=== PATIENT | female | born 1995 | race Caucasian/White ===

== ENCOUNTER 2019-06-29 11:00 | Outpatient (CLI) | payer MEDICAID, SELFPAY ==
[2019-06-29 11:09] VITALS: TEMP 36.9
[2019-06-29 11:15] VITALS: BP 125/83; PULSE 100
[2019-06-29 11:20] VITALS: BMI 36.6
[2019-06-29 11:31] VITALS: BP 131/90; PULSE 94
[2019-06-29 11:46] VITALS: BP 127/77; PULSE 98
[2019-06-29 11:49] LABS: Basophils % 0.4 %; Eosinophils # 0.3 10^3/uL (0.0-0.8); Eosinophils % 2.7 %; Hematocrit 35.8 % (37.0-47.0); Hemoglobin 11.7 g/dL (11.5-15.3); Lymphocytes # 1.7 10^3/uL (0.8-4.8); Mean Corpuscular HGB Conc 32.7 g/dL (30.0-36.0); Mean Corpuscular Hemoglobin 28.9 pg (28.0-34.0); Mean Corpuscular Volume 88.4 fL (81-99); Mean Platelet Volume 10.1 fL (7.4-10.4); Monocytes % 9.9 %; Neutrophils # 6.8 10^3/uL (1.8-7.7); Neutrophils % 69.3 %; Nucleated Red Blood Cells % 0 %; Platelet Count 220 10^3/cmm (130-400); Red Blood Count 4.05 10^6/uL (4.1-5.3); Red Cell Distribution Width 13.2 % (12.1-15.1); White Blood Count 9.9 10^3/uL (4.0-10.0)
[2019-06-29 12:01] VITALS: BP 120/66; PULSE 88
[2019-06-29 12:16] VITALS: BP 115/74; PULSE 100
== END 2019-06-29 12:30 | disposition home or self-care (01) ==
LOC: OPOB 11:06 → OBGYN 12:24 → OPOB 06-30 08:34
PROVIDERS: Family Provider Family Medicine; PCP Family Medicine; Visit Provider Family Medicine
DX: O99.419 Diseases of the circulatory system complicating pregnancy, unspecified trimester (principal); Z3A.00 Weeks of gestation of pregnancy not specified
CPT/HCPCS: 85025

== ENCOUNTER 2019-07-07 20:55 | Outpatient (CLI) | payer MEDICAID, SELFPAY ==
[2019-07-07] VITALS (7 sets, daily range): BP systolic 0–156; BP diastolic 0–81; PULSE 96–120; RESP 18; TEMP 36.7–36.9; BMI 36.6
== END 2019-07-07 22:27 | disposition home or self-care (01) ==
LOC: OPOB 20:57 → OBGYN 22:17 → OPOB 07-08 08:34
PROVIDERS: Family Provider Family Medicine; PCP Family Medicine; Visit Provider Family Medicine
DX: O26.899 Other specified pregnancy related conditions, unspecified trimester (principal); Z3A.00 Weeks of gestation of pregnancy not specified; R10.9 Unspecified abdominal pain
CPT/HCPCS: 99211

== ENCOUNTER 2019-07-16 02:20 | Outpatient (CLI) | payer MEDICAID, SELFPAY ==
[2019-07-16] VITALS (7 sets, daily range): BP systolic 0–149; BP diastolic 0–80; PULSE 75–94; RESP 18; TEMP 36.9; BMI 36.9
== END 2019-07-16 04:50 | disposition home or self-care (01) ==
LOC: OPOB 02:26 → OBGYN 04:46 → OPOB 08:17
PROVIDERS: Family Provider Family Medicine; PCP Family Medicine; Visit Provider Family Medicine
DX: O26.899 Other specified pregnancy related conditions, unspecified trimester (principal); Z3A.00 Weeks of gestation of pregnancy not specified; R10.9 Unspecified abdominal pain
CPT/HCPCS: 99211

== ENCOUNTER 2019-07-16 17:35 | Outpatient (CLI) | payer MEDICAID, SELFPAY ==
[2019-07-16 17:51] VITALS: BP 144/75; PULSE 88
[2019-07-16 18:07] VITALS: BP 0/0
[2019-07-16 18:08] VITALS: BP 120/73; PULSE 112
[2019-07-16 18:12] VITALS: TEMP 36.7
[2019-07-16 18:16] VITALS: BMI 36.9
[2019-07-16 18:19] LABS: Nitrazine Paper, PH Negative
[2019-07-16 18:22] VITALS: BP 0/0
[2019-07-16 18:39] VITALS: BP 120/73; PULSE 91; RESP 17; TEMP 36.7
== END 2019-07-16 18:25 | disposition home or self-care (01) ==
LOC: OPOB 17:45 → OBGYN 18:17 → OPOB 07-19 14:20
PROVIDERS: Family Provider Family Medicine; PCP Family Medicine; Visit Provider Family Medicine
DX: O26.899 Other specified pregnancy related conditions, unspecified trimester (principal); Z3A.00 Weeks of gestation of pregnancy not specified; R10.9 Unspecified abdominal pain; N89.8 Other specified noninflammatory disorders of vagina
CPT/HCPCS: 59025; 83986; 99211

== ENCOUNTER 2019-07-20 12:05 | Inpatient (IN) | payer MEDICAID, SELFPAY ==
[2019-07-20] VITALS (24 sets, daily range): BP systolic 0–141; BP diastolic 0–78; PULSE 56–105; RESP 16–18; TEMP 36.2–36.8; O2SAT 97–100; BMI 36.9
--- NOTE | 2019-07-20 12:14 | US_ITS ---
WS: [id number] US OB BPP wo NST [id number] REASON FOR EXAM: non-reassuring FHTs FINDINGS: Cervix measured 4.66 cm and is closed. Is cephalic presentation of the fetus. heart rate 147 beats for minute line limited respiration is interpreted no evidence of movement . The biophysical profile is 2/8. Posterior placenta with normal amounts of amniotic fluid seen. IMPR ESSION: Physical profile 2/8 line there is limited breathing identified.
[2019-07-20] MEDS: lactated ringers 1,000 ML 999 ML IV (12:28)
[2019-07-20 12:35] LABS: Basophils # 0.1 10^3/uL (0.0-0.1); Basophils % 0.3 %; Eosinophils # 0.3 10^3/uL (0.0-0.8); Eosinophils % 1.7 %; Hematocrit 38.2 % (37.0-47.0); Hemoglobin 12.5 g/dL (11.5-15.3); Lymphocytes # 1.4 10^3/uL (0.8-4.8); Lymphocytes % 8.4 %; Mean Corpuscular HGB Conc 32.7 g/dL (30.0-36.0); Mean Corpuscular Hemoglobin 29.5 pg (28.0-34.0); Mean Corpuscular Volume 90.1 fL (81-99); Mean Platelet Volume 10.7 fL (7.4-10.4); Monocytes # 1.1 10^3/uL (0.2-0.9); Monocytes % 6.2 %; Neutrophils # 14.2 10^3/uL (1.8-7.7); Neutrophils % 82.8 %; Nucleated Red Blood Cells % 0 %; Platelet Count 226 10^3/cmm (130-400); Red Blood Count 4.24 10^6/uL (4.1-5.3); Red Cell Distribution Width 13.5 % (12.1-15.1); White Blood Count 17.2 10^3/uL (4.0-10.0)
--- NOTE | 2019-07-20 13:54 | XR_ITS ---
WS: [id number] XR abdomen 1V* [id number] REASON FOR EXAM: stat section no count FINDINGS: KUB shows nonspecific findings. A density is seen overlapping the right upper abdomen weren 't sure the significance of this finding most likely extrinsic to the abdomen. The clinical correlati on recommended. XR/XR abdomen 1V* [id number] IMPRESSION: A density is noted in the right upper abdomen weren't sure if this is intrinsic or extrinsic.
--- NOTE | 2019-07-20 14:28 | PC.NURSE ---
placed after section due to stat section. dr lara aware.
--- NOTE | 2019-07-20 14:30 | PC.NURSE ---
in or still
--- NOTE | 2019-07-20 14:43 | PM.OBGYHP ---
Providers/Chief Complaint Admitting Physician: Mary Sam MD Primary Care Provider: Mary Sam MD Chief Complaint: Abdominal pain HPI SENIOR TECHNICAL EDITOR History of Present Illness Keisha Martins is a 24 year old female G1, P0 at 39 weeks 1 day gestation who presented to labor and delivery complaining of contractions. She states they have been consistent for the past hour and were becoming more painful they were occurring approximately every 5 minutes. Present Details : 1 Review of Systems Const: Denies: fever, chills or body aches Eyes: Denies: change in vision ENMT: Denies: throat pain Card: Denies: chest pain or palpitations Resp: Denies: shortness of breath or productive cough GI: Reports: abdominal pain (With contractions) : Denies: flank pain or vaginal bleeding Skin/Breast: Denies: rash Neuro: Denies: numbness in extremities or weakness in extremities Medications/Allergies Allergies Allergy/AdvReac Type Severity Reaction Status Date / Time No Known Allergies Allergy Verified 07/16/19 02:39 Vitals/I&O/Wt Last Vital Signs Temp 97.2 F L 07/20/19 14:20 Pulse 93 07/20/19 13:06 BP 139/66 07/20/19 13:06 Weight last 48 hrs Weight 229 lb Physical Exam HENMT: COMMON NORMALS: normocephalic and moist oral mucous membranes HEAD & SCALP: normocephalic Eye: COMMON NORMALS: PERRL and EOMs intact bilaterally PUPIL: Yes PERRL Chest: COMMONS NORMALS: inspection of chest normal Resp: COMMON NORMALS: normal respiratory effort; negative for no use of accessory muscles Cardio: COMMON NORMALS: regular rate and regular rhythm RATE: regular rate RHYTHM: regular rhythm GI: INSPECTION: Yes other (Gravid, nontender) Extremity: NARRATIVE EXTREMITY EXAM: 1+ edema Urinary Catheter Management^: Turk Latex: Cath Placed During This Visit: yes Urinary Catheter Date of Insertion: 07/20/19 Urinary Catheter Time of Insertion: 12:20 Data : 07/20/19 12:15 A&P Assessment and plan (1) Non-reassuring electronic monitoring tracing: The patient showed up having regular contractions and was found to have a nonreactive NST despite IV fluids and orange juice. A biophysical profile was obtained and was found to be 2 out of 8 for fluid only. An emergent stat section was called. Status: Acute Code(s): O36.8390 - Maternal care for abnormalities of the heart rate or rhythm, unspecified trimester, not applicable or unspecified (2) Uterine contractions during : Status: Acute Code(s): O62.2 - Other uterine inertia Attestations Medical Necessity Statement*: Surgery routine and postoperative care Coding Level of Care Code Acute Material Carrier for Chg Fwd Diagnoses Non-reassuring electronic monitoring tracing O36.8390 Uterine contractions during O62.2
--- NOTE | 2019-07-20 14:56 | PM.OP ---
Operative Report Date of procedure: July 20, 2019 Pre-op Diagnosis: Nonreassuring heart tones Post-op diagnosis: same Procedure Done: Primary low transverse section via Pfannenstiel skin incision Specimens removed/disposition: Vertex female infant weight 8 pounds 3 ounces Apgars 2 and 9 Pathology: none sent Anesthesia: Other (Spinal) Estimated blood loss (mL): 400 IV fluids (mL): 800 Urine output (mL): 50 Condition: stable Disposition: floor Brief History: This is a 24-year-old G1, P0 at 39 weeks 1 day gestation who presented to labor and delivery complaining of contractions. She had a nonreactive NST so biophysical profile was obtained and was found to be 2 out of 8 for fluid only. Emergent section was called at that time. Procedure: After informed consent patient was taken to the OR where spinal anesthesia was administered. She was prepped and draped in normal sterile fashion in dorsal supine position with a left lateral tilt. A Pfannenstiel skin incision was made and carried through to the underlying layer of fascia sharply. The fascial incision was extended laterally using the Mayos. The fascia was then grasped with Cesar clamps. The underlying rectus muscles were dissected off taking care to avoid injury to the underlying tissue. The peritoneum was then entered bluntly using a hemostat. The bladder blade was inserted and the vesicouterine peritoneum was identified and entered sharply using the Metzenbaums. The bladder flap was created digitally and then the bladder blade was reinserted. Uterine incision was made in a transverse fashion in the lower uterine segment. Thick meconium was noted. The infant's head was delivered atraumatically with bulb suction of the mouth and nares upon delivery. There was thick thick green mucoid material coming from both nares. The cord was clamped and cut. The did have good flexed tone when she was handed to the waiting pediatric team. The placenta was then delivered using fundal pressure. The uterus was then exteriorized from the abdomen and a dry sponge was used to clear the uterus of clots and debris. Uterine incision was repaired using 0 chromic in a running locked fashion. A second layer of the same suture was used in an imbricating manner. A foykar-ui-zucft suture was used in the left lateral aspect to obtain hemostasis. After hemostasis was ensured the bladder flap was then reapproximated using 0 Vicryl in a running fashion. The uterus was then returned to the abdomen and irrigation was used to clear the uterus of clots and debris. The uterine incision was reinspected for hemostasis. The peritoneum was then reapproximated using 4-0 Vicryl in a running fashion. The rectus muscles were gently reapproximated using one interrupted suture of 4-0 Vicryl. The subfascial tissue was then inspected for any small bleeders and these were coagulated using the Bovie. The fascia was then reapproximated using 0 Vicryl in a running fashion. The subcutaneous tissue was then irrigated and reinspected for hemostasis. The subcutaneous tissue was then reapproximated using 4-0 Vicryl in a running fashion. At this point abdominal x-ray was obtained since we did not have time to do instrument counts prior to initiation of the procedure. Abdominal x-ray appeared within normal limits, with no visible foreign bodies. The skin was then reapproximated using 4-0 Vicryl in a running fashion on a Fransisco needle. Steri-Strips and a pressure bandage were applied and patient went to recovery in stable condition Sponge instrument and needle counts were correct. Mother and infant were doing well after delivery
--- NOTE | 2019-07-20 20:19 | PC.NURSE ---
DR. CLAROS HERE AND TALKING WITH PT. PT AND SPOUSE AWARE THAT IS GOING TO HAPPEN PRIOR TO DR. CLAROS'S ARRIVAL. SECTION CALLED AND ANESTHESIA WAS NOTIFIED AND TOLD THAT IT WAS STAT FOR NON REASSURING FHT'S 1310 PT AMBULATED TO OR.
--- NOTE | 2019-07-20 20:20 | PC.NURSE ---
1226 PT OFF MONITORS FOR BIOPHYSICAL PROFILE. BACK ON AT 1252.
[2019-07-20] MEDS: miSOPROStol 200 mcg Tablet 800 MCG PR (20:39)
[2019-07-20] MEDS: HYDROcodone-acetaminophen 5-325 mg Tablet PO (22:41)
[2019-07-21 01:00] VITALS: BP 108/66; PULSE 79; RESP 16
[2019-07-21 03:44] LABS: Hematocrit 33.9 % (37.0-47.0); Hemoglobin 11.2 g/dL (11.5-15.3); Mean Corpuscular Hemoglobin 29.9 pg (28.0-34.0); Mean Corpuscular Volume 90.6 fL (81-99); Mean Platelet Volume 10.7 fL (7.4-10.4); Platelet Count 197 10^3/cmm (130-400); Red Blood Count 3.74 10^6/uL (4.1-5.3); Red Cell Distribution Width 13.5 % (12.1-15.1); White Blood Count 18.6 10^3/uL (4.0-10.0)
[2019-07-21 04:30] VITALS: BP 103/64; PULSE 97; RESP 16
[2019-07-21] MEDS: HYDROcodone-acetaminophen 5-325 mg Tablet PO (06:02)
[2019-07-21] MEDS: prenatal vitamin Capsule 1 CAP PO (09:06)
[2019-07-21] MEDS: docusate sodium 100 mg Capsule PO ×2 (09:06→21:18)
[2019-07-21 09:15] VITALS: BP 96/63; PULSE 99; RESP 18; TEMP 36.8
--- NOTE | 2019-07-21 09:31 | PC.NURSE ---
Patient ambulated 1 time up and down hallway. Patient reported she had not previously ambulated since her surgery yesterday. Patient tolerated ambulation well, denying dizziness weakness or being lightheaded. Patient instructed she is fine to get up and shower as well as continue ambulation unassisted.
[2019-07-21 10:56] VITALS: BP 107/71; PULSE 114; RESP 18; TEMP 37.1
[2019-07-21 16:48] VITALS: BP 105/66; PULSE 87; RESP 18
--- NOTE | 2019-07-21 19:30 | PM.PN ---
Subjective Subjective: Interval history: Has not passed flatus yet but is tolerating full liquid diet. Ambulating,. Has some significant itching but this was present prior to hospitalization Vitals/I&O/Wt Last Vital Signs Temp 98.7 F 07/21/19 10:56 Pulse 87 07/21/19 16:48 Resp 18 07/21/19 16:48 BP 105/66 07/21/19 16:48 Pulse Ox 97 07/20/19 16:57 07/21/19 07/21/19 07/21/19 06:59 14:59 22:59 Intake Total 150 / 150 Output Total 600 / 600 Balance -450 / -450 Weight last 48 hrs Weight 229 lb Physical Exam Const: COMMON NORMALS: no apparent distress HENMT: COMMON NORMALS: normocephalic HEAD & SCALP: normocephalic Eye: COMMON NORMALS: PERRL and EOMs intact bilaterally PUPIL: Yes PERRL Resp: COMMON NORMALS: normal respiratory effort Cardio: COMMON NORMALS: regular rate and regular rhythm RATE: regular rate RHYTHM: regular rhythm GI: COMMON NORMALS: soft to palpation AUSCULTATION: Yes hypoactive bowel sounds PALPATION: Yes soft, No tender and Yes other (Incision clean dry and intact) Extremity: GENERAL: No calf tenderness and Yes edema Urinary Catheter Management^: Turk Latex: Cath Placed During This Visit: yes, but has since been removed by the nurse Reason for Continuing Indwelling Catheter: Perioperative Use in Selected Surgeries Urinary Catheter Date of Insertion: 07/20/19 Urinary Catheter Time of Insertion: 12:20 Date Urinary Catheter Removed: 07/21/19 Time Urinary Catheter Discontinued: 05:00 Data : 07/21/19 03:00 A&P Assessment and plan (1) Delivery by section using transverse incision of lower segment of uterus: Postop day 1. Doing well . patient is feeling very hungry so I am going to go ahead and let her eat with strong cautions to stop if she feels any nausea. Continue routine postoperative care Status: Acute Code(s): O82 - Encounter for delivery without indication Attestations Medical Necessity Statement*: Routine and postoperative care Coding Level of Care Code Acute Family Preservation Caseworker for Chg Fwd Diagnoses Delivery by section using transverse incision of lower segment of uterus O82
[2019-07-21 22:00] VITALS: BP 104/68; PULSE 92; RESP 18
[2019-07-22] MEDS: HYDROcodone-acetaminophen 5-325 mg Tablet PO ×2 (06:21→18:53)
[2019-07-22 07:33] VITALS: BP 113/70; PULSE 69; RESP 16; TEMP 36.6
[2019-07-22] MEDS: prenatal vitamin Capsule 1 CAP PO (09:55)
[2019-07-22] MEDS: docusate sodium 100 mg Capsule PO ×2 (09:55→18:54)
[2019-07-22] MEDS: lanolin oint 7 gm 1 APPLIC TOPICAL (09:56)
[2019-07-22 11:45] VITALS: BP 113/60; PULSE 91; RESP 18; TEMP 36.8; O2SAT 96
[2019-07-22] MEDS: cetirizine 10 mg Tablet PO (12:43)
[2019-07-22 17:15] VITALS: BP 106/66; PULSE 91; RESP 18; TEMP 36.6
[2019-07-22 22:00] VITALS: BP 114/69; PULSE 105; RESP 18; TEMP 36.6
[2019-07-23] MEDS: HYDROcodone-acetaminophen 5-325 mg Tablet PO ×2 (00:15→04:56)
[2019-07-23 04:50] VITALS: BP 108/64; PULSE 89; RESP 18
[2019-07-23 09:52] VITALS: BP 109/68; PULSE 105; RESP 16; TEMP 36.6
[2019-07-23] MEDS: ferrous sulfate EC 325 mg Tablet PO (09:53)
[2019-07-23] MEDS: docusate sodium 100 mg Capsule PO (09:53)
[2019-07-23] MEDS: prenatal vitamin Capsule 1 CAP PO (09:54)
--- NOTE | 2019-07-23 13:45 | PM.OBGYDC ---
Discharge Providers SENIOR MICROSOFT CONSULTANT Date of Admission: 07/20/19 12:05 Date of Discharge: 07/23/19 Attending Provider at Admission: Mary Sam MD Attending Provider at Discharge: Mary Sam MD Primary Care Provider: Mary Sam MD Diagnoses at Discharge Discharge Diagnosis (1) Delivery by section using transverse incision of lower segment of uterus: Status: Acute Reason for Visit Reason for Visit: Reason For Visit: Abdominal pain Hospital Course Hospital Course: This is a 24-year-old G1 now P1 who presented to labor and delivery complaining of contractions. Her NST upon arrival was nonreactive and her biophysical profile was 2 out of 8 so she went to emergent section. Mother and infant did well postoperatively. On postop day #2 mother was ambulating, tolerating a regular diet, had good pain control and was comfortable with discharge home. Information Peripartum Data: Delivery Method: Section Physical Exam HENMT: COMMON NORMALS: normocephalic and head/scalp atraumatic HEAD & SCALP: normocephalic and atraumatic FACE & SINUS: normal facial exam Eye: COMMON NORMALS: PERRL and EOMs intact bilaterally PUPIL: Yes PERRL Chest: COMMONS NORMALS: inspection of chest normal Cardio: COMMON NORMALS: regular rate and regular rhythm RATE: regular rate RHYTHM: regular rhythm GI: COMMON NORMALS: normal to inspection, nondistended, normoactive bowel sounds, soft to palpation and non-tender (Incision clean dry and intact) PALPATION: Yes soft Extremity: COMMON NORMALS: no calf tenderness GENERAL: Yes edema Urinary Catheter Management^: Turk Latex: Cath Placed During This Visit: yes, but has since been removed by the nurse Reason for Continuing Indwelling Catheter: Perioperative Use in Selected Surgeries Urinary Catheter Date of Insertion: 07/20/19 Urinary Catheter Time of Insertion: 12:20 Date Urinary Catheter Removed: 07/21/19 Time Urinary Catheter Discontinued: 05:00 Discharge Data Data Completed and Pending: Completed Studies During Hospitalization Category Date Time Status XR abdomen 1V* [id number] 018 Stat Exams 07/20/19 13:54 Completed US OB biophysical profile wo NST [U S OB BPP wo Ultrasound 07/20/19 12:14 Completed NST 55138] Stat Vitals: Last Vital Signs Temp 97.9 F 07/23/19 09:52 Pulse 105 H 07/23/19 09:52 Resp 16 07/23/19 09:52 BP 109/68 07/23/19 09:52 Pulse Ox 96 07/22/19 11:45 Discharge Plan Discharge Prescriptions: No Action Complete 1 tab PO DAILY RF: 0 Referrals: Mary Sam MD [Primary Care Provider] - 07/28/19 11:00 am (* Your 1 week incision check is with Dr. Sam on Sunday July 28, 2019 at 11:00am. * Your 4 week post appointment is with Dr. Sam on August 17, 2019 at 9:45am. ) Patient Instructions: OB - Ralf/Cecy, OB Discharge Report, OB Anesthesia Instructions, OB Food/Drug Interaction Guide, OB Home Care, OB Proud Parent Packet Coding Level of Care Code Acute Machine Engraver for Chg Fwd Diagnoses Delivery by section using transverse incision of lower segment of uterus O82
[2019-07-23 15:47] VITALS: BP 109/68; PULSE 105; RESP 16; TEMP 36.6
== END 2019-07-23 15:48 | disposition home or self-care (01) | DRG 788 ==
LOC: OPOB 12:34 → OBGYN 12:34
PROVIDERS: Admitting Provider Family Medicine; Family Provider Family Medicine; PCP Family Medicine; Visit Provider Family Medicine
PROC: 10D00Z1 Extraction of Products of Conception, Low, Open Approach (ICD-10-PCS; CPT 59514; principal; 2019-07-20 13:15)
DX: O36.8390 Maternal care for abnormalities of the fetal heart rate or rhythm, unspecified trimester, not applicable or unspecified (principal); Z3A.39 39 weeks gestation of pregnancy; Z37.0 Single live birth; O62.2 Other uterine inertia; O77.0 Labor and delivery complicated by meconium in amniotic fluid
CPT/HCPCS: 12345; 36415; 51702; 59025; 59409; 74018; 76819; 85025; 85027; 98960; 99211; J2274; J2405; J2590; J7030

== ENCOUNTER → 2022-06-27 08:25 | Outpatient (BNVA) | payer BC, MEDICAID, SELFPAY | PROVIDERS: Family Provider Family Medicine; PCP Family Medicine; Visit Provider Nurse Practitioner Women's Health | DX: N92.6 Irregular menstruation, unspecified (principal); Z32.00 Encounter for pregnancy test, result unknown | CPT/HCPCS: 81000; 81025 ==

== ENCOUNTER → 2022-07-01 10:13 | Outpatient (BNVA) | payer BC, MEDICAID, SELFPAY | PROVIDERS: Family Provider Family Medicine; PCP Family Medicine; Visit Provider Nurse Practitioner Women's Health | DX: Z36.87 Encounter for antenatal screening for uncertain dates (principal) | CPT/HCPCS: 76801 ==

== ENCOUNTER → 2022-07-09 09:40 | Outpatient (BNVA) | payer BC, MEDICAID, SELFPAY | PROVIDERS: Family Provider Family Medicine; PCP Family Medicine; Visit Provider Nurse Practitioner Women's Health | DX: O34.219 Maternal care for unspecified type scar from previous cesarean delivery (principal); O41.8X90 Other specified disorders of amniotic fluid and membranes, unspecified trimester, not applicable or unspecified; O46.8X9 Other antepartum hemorrhage, unspecified trimester | CPT/HCPCS: 80307; 81000; 87086 ==

== ENCOUNTER → 2022-07-16 10:14 | Outpatient (BNVA) | payer BC, MEDICAID, SELFPAY | PROVIDERS: Family Provider Family Medicine; PCP Family Medicine; Visit Provider Obstetrics & Gynecology | DX: Z34.80 Encounter for supervision of other normal pregnancy, unspecified trimester (principal) | CPT/HCPCS: 81000; 82950; 85027; 86592; 86762; 86803; 86850; 86900; 87340; 87806 ==

== ENCOUNTER → 2022-07-29 15:00 | Outpatient (BNVA) | payer BC, MEDICAID, SELFPAY | PROVIDERS: Family Provider Family Medicine; PCP Family Medicine; Visit Provider Obstetrics & Gynecology | DX: Z34.80 Encounter for supervision of other normal pregnancy, unspecified trimester (principal) | CPT/HCPCS: 81000; 87491; 87591; 87661; 88175 ==

== ENCOUNTER → 2022-08-23 10:00 | Outpatient (BNVA) | payer BC, MEDICAID, SELFPAY | PROVIDERS: Family Provider Family Medicine; PCP Family Medicine; Visit Provider Nurse Practitioner Women's Health | DX: Z34.80 Encounter for supervision of other normal pregnancy, unspecified trimester (principal); Z36.9 Encounter for antenatal screening, unspecified | CPT/HCPCS: 81000; 82105 ==

== ENCOUNTER → 2022-09-23 09:23 | Outpatient (BNVA) | payer BC, MEDICAID, SELFPAY | PROVIDERS: Family Provider Family Medicine; PCP Family Medicine; Visit Provider Obstetrics & Gynecology | DX: Z34.80 Encounter for supervision of other normal pregnancy, unspecified trimester (principal) | CPT/HCPCS: 76805 ==

== ENCOUNTER → 2022-09-27 11:35 | Outpatient (BNVA) | payer BC, MEDICAID, SELFPAY | PROVIDERS: Family Provider Family Medicine; PCP Family Medicine; Visit Provider Obstetrics & Gynecology | DX: Z34.80 Encounter for supervision of other normal pregnancy, unspecified trimester (principal) | CPT/HCPCS: 81000 ==

== ENCOUNTER → 2022-10-25 10:12 | Outpatient (BNVA) | payer BC, MEDICAID, SELFPAY | PROVIDERS: Family Provider Family Medicine; PCP Family Medicine; Visit Provider Obstetrics & Gynecology | DX: Z34.80 Encounter for supervision of other normal pregnancy, unspecified trimester (principal) | CPT/HCPCS: 81000; 82950 ==

== ENCOUNTER → 2022-11-15 08:49 | Outpatient (BNVA) | payer BC, MEDICAID, SELFPAY | PROVIDERS: Family Provider Family Medicine; PCP Family Medicine; Visit Provider Obstetrics & Gynecology | DX: Z34.80 Encounter for supervision of other normal pregnancy, unspecified trimester (principal) | CPT/HCPCS: 81000; 85025 ==

== ENCOUNTER → 2022-11-29 13:01 | Outpatient (BNVA) | payer BC, MEDICAID, SELFPAY | PROVIDERS: Family Provider Family Medicine; PCP Family Medicine; Visit Provider Nurse Practitioner Women's Health | DX: Z34.80 Encounter for supervision of other normal pregnancy, unspecified trimester (principal) | CPT/HCPCS: 81000 ==

== ENCOUNTER → 2022-12-16 11:26 | Outpatient (BNVA) | payer BC, MEDICAID, SELFPAY | PROVIDERS: Family Provider Family Medicine; PCP Family Medicine; Visit Provider Obstetrics & Gynecology | DX: Z34.80 Encounter for supervision of other normal pregnancy, unspecified trimester (principal) | CPT/HCPCS: 81000 ==

== ENCOUNTER → 2022-12-27 10:00 | Outpatient (BNVA) | payer BC, MEDICAID, SELFPAY | PROVIDERS: Family Provider Family Medicine; PCP Family Medicine; Visit Provider Nurse Practitioner Women's Health | DX: Z34.80 Encounter for supervision of other normal pregnancy, unspecified trimester (principal); Z87.59 Personal history of other complications of pregnancy, childbirth and the puerperium; Z86.59 Personal history of other mental and behavioral disorders; K64.9 Unspecified hemorrhoids | CPT/HCPCS: 81000 ==

== ENCOUNTER → 2023-01-10 10:25 | Outpatient (BNVA) | payer BC, MEDICAID, SELFPAY | PROVIDERS: Family Provider Family Medicine; PCP Family Medicine; Visit Provider Obstetrics & Gynecology | DX: Z34.80 Encounter for supervision of other normal pregnancy, unspecified trimester (principal) | CPT/HCPCS: 81000; 87081 ==

== ENCOUNTER → 2023-01-14 12:24 | Outpatient (BNVA) | payer BC, MEDICAID, SELFPAY | PROVIDERS: Family Provider Family Medicine; PCP Family Medicine; Visit Provider Obstetrics & Gynecology | DX: Z34.80 Encounter for supervision of other normal pregnancy, unspecified trimester (principal) | CPT/HCPCS: 76816 ==

== ENCOUNTER → 2023-01-15 08:52 | Outpatient (BNVA) | payer BC, MEDICAID, SELFPAY | PROVIDERS: Family Provider Family Medicine; PCP Family Medicine; Visit Provider Obstetrics & Gynecology | DX: Z34.80 Encounter for supervision of other normal pregnancy, unspecified trimester (principal) | CPT/HCPCS: 81000 ==

== ENCOUNTER 2023-01-24 22:48 | Inpatient (IN) | payer BC, MEDICAID, SELFPAY ==
[2023-01-24] VITALS (15 sets, daily range): BP systolic 112–154; BP diastolic 59–125; PULSE 91–114; RESP 18; BMI 35.5
--- NOTE | 2023-01-24 22:43 | PM.HP ---
Providers/Chief Complaint Admitting Physician: Lety Kay DO Primary Care Provider: Mary Sam MD Chief Complaint: contractions History of Present Illness Keisha Orozco is a 27 year old female G2, P1 at 38.1 weeks gestation admitted to labor and delivery after observation of uterine contractions every 2 minutes. Patient complained of increased pelvic pain with contractions, she denies leakage of fluid or vaginal bleeding. Initially with observation and pelvic exam patient cervix was 1/50%/ballotable. Current exam indicates progression of contractions now leading to 1/50%/0 vertex. EFM?category 1. Reviewed with patient and the progression of contractions to increase in intensity with frequency every 1 to 2 minutes. The baby is vertex has descended to 0 station. I reviewed early labor with patient, and gave her the option of waiting or proceeding now with repeat . Patient desires to proceed with delivery as her contractions are getting more painful. Discussed risk and benefit of section including bleeding, infection, injury to blood vessels, nerves and bladder as well as the uterus itself. Patient understands. Review of Systems General: Reports: 10 or more systems reviewed and unremarkable except in HPI and below Medications/Allergies Home Medications Medication Instructions Recorded Confirmed Last Taken Type prenat.vits,maranda,zjj-qvsp-[id number] 1 tab PO DAILY #90 tabs 07/02/22 01/24/23 Unknown Rx compr.stocking,thigh,reg,large #2 ea 08/23/22 01/24/23 Unknown Rx sertraline 25 mg tablet (Zoloft) 25 mg PO DAILY #30 tabs 12/27/22 01/24/23 Unknown Rx Allergies Allergy/AdvReac Type Severity Reaction Status Date / Time No Known Allergies Allergy Verified 01/24/23 09:50 PFSH Acute PFSH: Medical History History of depression managed with prozac; she stopped October 2021; she currently feels managed without medication today No pertinent past medical history neghx:htn,dm,thyroid,dvt/pe PCP: [facility] History of section (07/20/19) Primary Emergent LTCS-- performed due to NRFHR by Dr. Sam. Family History Father Diabetes Hyperlipidemia Family/Other Diabetes paternal Mother Hypertension Hyperlipidemia Grandmother Thyroid condition maternal Denies family history of Colon cancer Ovarian cancer Heart disease Breast cancer Uterine cancer Stroke Female Reproductive History: : 2 Vitals/I&O/Wt Last Vital Signs Pulse 104 H 01/24/23 22:38 BP 112/63 01/24/23 22:38 Weight last 48 hrs Weight 99.79 kg Physical Exam Narrative: 27-year-old female alert and orient x3 no acute distress. Answers questions appropriately. Const: COMMON NORMALS: no acute distress, patient oriented x3, healthy appearing, alert and well nourished HENMT: COMMON NORMALS: normocephalic and dentition normal Resp: COMMON NORMALS: normal respiratory effort and clear to auscultation bilaterally Cardio: COMMON NORMALS: regular rate and regular rhythm Back/Pelvis: OTHER: Pelvic exam?cervix 1 cm / 50%/0 vertex presentation Extremity: COMMON NORMALS: normal to inspection, no calf tenderness and no pedal edema Neuro: COMMON NORMALS: CN's II-XII intact bilaterally and deep tendon reflexes 2+ bilaterally A&P Assessment and plan (1) Supervision of other normal : 1. 38.1 weeks gestation in early labor 2. Previous 3. GBS negative P. Admit patient to labor and delivery for repeat low-transverse section. (2) Previous delivery affecting : (3) History of depression: Attestations Medical Necessity Statement*: Admit patient to labor and delivery for repeat low transverse section delivery. Time Spent in Patient Care: 30 minutes Coding Level of Care Code Acute Code for Chg Fwd Diagnoses Supervision of other normal Z34.80 Previous delivery affecting O34.219 History of depression Z87.59; Z86.59
[2023-01-24] MEDS: lactated ringers 1,000 ML 999 ML IV (23:28)
[2023-01-24 23:32] LABS: Basophils % 0.3 %; Eosinophils # 0.1 10^3/uL (0.0-0.8); Eosinophils % 1.1 %; Hematocrit 35.3 % (36-47); Lymphocytes # 2.9 10^3/uL (0.8-4.8); Lymphocytes % 23.1 %; Mean Corpuscular Hemoglobin 30.1 pg (27-33); Mean Corpuscular Volume 88.5 fl (85-98); Mean Platelet Volume 10.7 fL (7.4-10.4); Monocytes # 0.8 10^3/uL (0.2-0.9); Monocytes % 6.5 %; Neutrophils # 8.71 10^3/uL (1.8-7.7); Neutrophils % 68.6 %; Nucleated Red Blood Cells % 0 %; Platelet Count 184 10^3/cmm (157-399); Red Blood Count 3.99 10^6/uL (3.85-5.65); Red Cell Distribution Width 13.7 % (12.1-15.1)
--- NOTE | 2023-01-24 23:55 | ANES.PREANE2 ---
Pre-Anesthetic Assessment Height/Weight: Height 1.68 m Weight 99.79 kg Pulse BP 100 121/72 01/24/23 22:59 01/24/23 22:59 Preop Diagnosis: iup Operation Date: 01/24/23 23:59 Proposed Procedures p Section Repeat(Not Applicable) - Flip Mcdonald MD Operation Date: 01/25/23 23:59 Proposed Procedures p Section Repeat(Not Applicable) - Lety Kay DO Familial anesthetic complications: none Was Beta Bert taken within 24 hours: N/A Was Clonidine taken within 24 hours: N/A Last Intake: 14:00 Social No alcohol and No tobacco Exam alert and oriented x 3 Airway Submandibular: within normal limits Cervical ROM: within normal limits Mallampati: Class II Dentition: full History/ROS No significant complaints Anesthetic Plan ASA status: 2 Anesthesia: Anesthesia Evaluation, General and Regional (specify below) (spinal) Medications/Allergies Home Medications Medication Instructions Recorded Confirmed Last Taken Type prenat.vits,maranda,xfj-iyvv-rakxj 1 tab PO DAILY #90 tabs 07/02/22 01/24/23 Unknown Rx compr.stocking,thigh,reg,large #2 ea 08/23/22 01/24/23 Unknown Rx sertraline 25 mg tablet (Zoloft) 25 mg PO DAILY #30 tabs 12/27/22 01/24/23 Unknown Rx Allergies Allergy/AdvReac Type Severity Reaction Status Date / Time No Known Allergies Allergy Verified 01/24/23 09:50 [facility], [facility] Anesthesia Medical History History of depression managed with prozac; she stopped October 2021; she currently feels managed without medication today No pertinent past medical history neghx:htn,dm,thyroid,dvt/pe PCP: [facility] History History of section (07/20/19) Primary Emergent LTCS-- performed due to NRFHR by Dr. Sam. Family History Father Diabetes Hyperlipidemia Family/Other Diabetes paternal Mother Hypertension Hyperlipidemia Grandmother Thyroid condition maternal Denies family history of Colon cancer Ovarian cancer Heart disease Breast cancer Uterine cancer Stroke Female Reproductive History : 2 Data Anesthesia 01/24/23 23:12 Short CBC 01/24/23 Range/Units 23:12 WBC 12.70 H (3.29-11.43) 10^3/uL Hgb 12.00 (11.27-16.99) g/dL Hct 35.3 L (36-47) % MCV 88.5 (85-98) fl Plt Count 184 (157-399) 10^3/cmm Neut % (Auto) 68.6 % Neut # (Auto) 8.71 H (1.8-7.7) 10^3/uL Cardiac Studies: No Data to Display
[2023-01-25] VITALS (17 sets, daily range): BP systolic 91–103; BP diastolic 41–67; PULSE 60–77; RESP 16–18; TEMP 36.6–36.7; O2SAT 96–99
[2023-01-25] MEDS: famotidine 20 mg/2 mL INJ IVP
[2023-01-25] MEDS: metoclopramide 5 mg/mL SDV 2 mL 10 MG IVP (00:01)
[2023-01-25] MEDS: ceFAZolin 2,000 MG in sodium chloride 0.9% (plus) 50 ML 100 MG IV (00:01)
[2023-01-25] MEDS: citric acid-sodium citrate 30 mL UDC PO (00:01)
--- NOTE | 2023-01-25 01:08 | PM.OP ---
Operative Report Date of procedure: January 25, 2023 Pre-op diagnosis: 27-year-old female at 38.1 weeks IUP Early labor Previous Desires repeat elective GBS negative Post-op diagnosis: female delivered a viable baby girl Post-op findings: Normal baby girl Procedure done: Repeat low-transverse section Specimens removed/disposition: Placenta Surgeon: Lety Kay DO Anesthesia: Spinal Estimated blood loss (mL): 1,000 Complications: None Condition: stable Brief History: 27-year-old female G2, P1 at 38.1 weeks gestation observed on labor and delivery in early labor with contractions every 2 to 3 minutes. Patient has history of previous section and desired repeat elective section for this delivery. Risk and benefits reviewed patient verbalized understanding and consent signed. Procedure: After informed consent was obtained patient was prepared for surgery. Patient was taken to the surgical suite positioned in the sitting position and spinal anesthesia was placed. Patient was repositioned in supine position with a left lateral tilt. heart tones were monitored and noted to be 160. The abdomen was prepped and draped in the standard fashion and a Turk catheter placed. Pfannenstiel incision was made through the skin and extended to the fascia. The fascia was incised and the peritoneum opened bluntly. A bladder flap was created with Metzenbaums and pickups. The uterine incision was made with a knife and extended laterally. The bag of jarvis were ruptured and clear fluid noted. The baby girls vertex was delivered with a mighty VAC from the MARJORIE presentation. The vacuum was removed the anterior followed by the posterior shoulders delivered with the remainder the baby's body to follow. Spontaneous robust cry was noted the oral and nasal orifice were suctioned with a bulb. The cord was clamped and cut and baby handed to the nnps at the [facility]. Cord blood was obtained. Pitocin IV solution was started in a bolus manner. The uterus was exteriorized and wiped clean and massaged. The uterus firmed. The uterine incision was closed with 0 Vicryl in a running interlocking stitch. A gvgwfi-[id number]-tbssg was placed in the right corner for hemostatic purposes with good hemostasis assured. The posterior cul-de-sac and sidewalls were wiped clean with a moist lap sponge the uterus replaced in the abdomen the incision inspected and noted to be dry. The peritoneum and rectus muscle approximated with 2-0 Vicryl the fascia approximated with 0 Vicryl in a running stitch. The subcu fat approximated with 2-0 Vicryl and the skin with 4-0 Vicryl in a subcuticular stitch. With good approximation and no bleeding noted the incision was cleansed and a pressure dressing applied. Mother and infant are both in stable and satisfactory condition. Apgars 8/9 weight 8 pounds 1 Related Problem List Diagnoses (1) Supervision of other normal : (2) Previous delivery affecting : (3) History of depression:
[2023-01-25] MEDS: dextrose 5%-lactated ringers 1,000 ML 125 ML IV (02:21)
--- NOTE | 2023-01-25 09:07 | P.PN_ITS ---
Subjective Subjective: 27-year-old s/p repeat low transverse section. Patient awake and alert doing well, without complaints. Review of surgery and expected postop activities. Risk of pneumonia, DVT, blee ding and postop infection reviewed. Medications: Medication Review Details: Postop pain medication reviewed. We will start with ibuprofen and Tylenol and will supplement narcotics if needed. Vitals/I&O/Wt Last Vital Signs Temp 97.8 F 01/25/23 03:00 Pulse 65 01/25/23 06:00 Resp 18 01/25/23 06:00 BP 103/65 01/25/23 06:00 Pulse Ox 97 01/25/23 01:45 O2 Del Method Room Air 01/25/23 01:45 01/24/23 01/25/23 01/25/23 22:59 06:59 14:59 Intake Total 1950 / 1950 Output Total 1050 / 1050 Balance 900 / 900 Weight last 48 hrs Weight 99.79 kg Physical Exam Back/Pelvis: OTHER: Abdomen?soft, nondistended. Fundus below umbilicus. Incision?bandage removed. Incision intact without bleeding or swelling. Lochia?light. Extremity: NARRATIVE EXTREMITY EXAM: Extremities?negative swelling, negative Homans' sign. Urinary Catheter Management: Turk: Cath Placed During This Visit: yes Reason for Continuing Indwelling Catheter: Perioperative Use in Selected Surgeries Urinary Catheter Date of Insertion: 01/25/23 Urinary Catheter Time of Insertion: 00:20 Data 01/24/23 23:12 A&P Assessment and plan (1) Delivery by section at 37-39 weeks of gestation due to labor: A. 1. Postoperative day #1, repeat low-transverse section baby girl P. 1. CBC this a.m. 2. Review postop expectations, advance diet and increase ambulation. BREONNA Turk (2) Previous delivery affecting : Attestations Medical Necessity Statement*: S/p repeat low transverse section Postoperative care Coding Level of Care Code Acute Code for Chg Fwd Diagnoses Delivery by section at 37-39 weeks of gestation due to labor O75.82 Previous delivery affecting O34.219
[2023-01-25] MEDS: ketorolac 30 mg/mL INJ IVP (09:24)
[2023-01-25 13:48] LABS: Hematocrit 30.6 % (36-47); Mean Corpuscular HGB Conc 33.3 g/dL (30-55); Mean Corpuscular Hemoglobin 30.5 pg (27-33); Mean Corpuscular Volume 91.6 fl (85-98); Mean Platelet Volume 10.4 fL (7.4-10.4); Platelet Count 163 10^3/cmm (157-399); Red Blood Count 3.34 10^6/uL (3.85-5.65); Red Cell Distribution Width 13.9 % (12.1-15.1); White Blood Count 12.27 10^3/uL (3.29-11.43)
[2023-01-25] MEDS: acetaminophen 325 mg Tablet 650 MG PO (15:26)
[2023-01-25] MEDS: docusate sodium 100 mg Capsule PO (17:56)
[2023-01-25] MEDS: ibuprofen 800 mg tablet PO (21:12)
[2023-01-25] MEDS: sertraline 50 mg Tablet 25 MG PO (21:13)
[2023-01-25] MEDS: HYDROcodone-acetaminophen 5-325 mg Tablet PO (22:39)
[2023-01-26 03:19] VITALS: BP 103/62; PULSE 64; RESP 16; TEMP 36.7; O2SAT 97
[2023-01-26] MEDS: ibuprofen 800 mg tablet PO ×3 (08:28→21:56)
[2023-01-26] MEDS: sertraline 50 mg Tablet 25 MG PO (08:28)
[2023-01-26] MEDS: docusate sodium 100 mg Capsule PO (08:29)
[2023-01-26 08:30] VITALS: BP 106/69; PULSE 75; RESP 16; TEMP 36.9; O2SAT 97
--- NOTE | 2023-01-26 10:06 | PM.PN ---
Subjective Subjective: Patient doing well, tolerating regular diet and voiding. Ambulating without assistance. Denies headaches blurred vision, shortness of breath or chest pain. Postop expectations reviewed, patient verbalizes understanding. Medications: Medication Review Details: Discussed discontinuation of narcotics for pain medication. We will proceed with ibuprofen and Tylenol alternating as needed. Vitals/I&O/Wt Last Vital Signs Temp 98.4 F 01/26/23 08:30 Pulse 75 01/26/23 08:30 Resp 16 01/26/23 08:30 BP 106/69 01/26/23 08:30 Pulse Ox 97 01/26/23 08:30 O2 Del Method Room Air 01/26/23 08:30 Weight last 48 hrs Weight 99.79 kg Physical Exam Back/Pelvis: OTHER: Abdomen?soft, fundus below the umbilicus. Incision clean dry and intact. Lochia light. Extremity: NARRATIVE EXTREMITY EXAM: Extremities?no edema, negative Homans' sign. Urinary Catheter Management: Turk: Cath Placed During This Visit: yes, but has since been removed by the nurse Reason for Continuing Indwelling Catheter: Decision to DC Catheter Urinary Catheter Date of Insertion: 01/25/23 Urinary Catheter Time of Insertion: 00:20 Date Urinary Catheter Removed: 01/25/23 Time Urinary Catheter Discontinued: 10:00 Data 01/25/23 13:42 A&P Assessment and plan (1) Delivery by section at 37-39 weeks of gestation due to labor: S/p repeat low transverse section?postoperative day #1 (2) Previous delivery affecting : (3) History of depression: Attestations Medical Necessity Statement*: Postoperative management, s/p repeat low transverse section Coding Level of Care Code Acute Code for Chg Fwd Diagnoses Delivery by section at 37-39 weeks of gestation due to labor O75.82 Previous delivery affecting O34.219 History of depression Z87.59; Z86.59
[2023-01-26] MEDS: acetaminophen 325 mg Tablet 650 MG PO (13:40)
[2023-01-26] MEDS: HYDROcodone-acetaminophen 5-325 mg Tablet PO (15:34)
[2023-01-26 16:20] VITALS: BP 117/79; PULSE 63; RESP 16; TEMP 36.6; O2SAT 99
[2023-01-26] MEDS: prenatal vitamin Capsule 1 CAP PO (21:56)
[2023-01-26 21:57] VITALS: BP 112/73; PULSE 55; RESP 15; TEMP 36.7; O2SAT 98
[2023-01-26] MEDS: simethicone 80 mg Chew PO (21:59)
[2023-01-27 05:02] VITALS: BP 94/57; PULSE 65; RESP 16; TEMP 36.8; O2SAT 96
[2023-01-27] MEDS: HYDROcodone-acetaminophen 5-325 mg Tablet PO (06:36)
--- NOTE | 2023-01-27 09:18 | PM.OBGYDC ---
Discharge Providers [employer] Date of Admission: 01/24/23 22:48 Date of Discharge: 01/27/23 Attending Provider at Admission: Lety Kay DO Attending Provider at Discharge: Flip Mcdonald MD Primary Care Provider: Mary Sam MD Diagnoses at Discharge Discharge Diagnosis (1) Delivery by section at 37-39 weeks of gestation due to labor: Details from hospital stay: 27-year-old female G2 now P2 delivered via repeat low transverse section after observation and patient at 38.1 weeks gestation with early labor. Patient's postoperative course has been uncomplicated. Patient is tolerating regular diet, voiding, ambulating and caring for infant without nursing assistance. VSS, afebrile Abdomen?soft, fundus firm below the umbilicus. Incision clean dry and intact. Lochia?light Extremities?no edema, negative Homans' sign Lab?hemoglobin 10.2/hematocrit 30.6?WBC 12.27. Status: Acute (2) Previous delivery affecting : Details from hospital stay: S/p repeat low transverse section- viable baby girl day #2 Status: Acute (3) History of depression: Status: Acute Permanent problem details: managed with prozac; she stopped October 2021; she currently feels managed without medication today Reason for Visit Reason for Visit: contractions Hospital Course Hospital Course See above details from hospital stay Information Peripartum Data: Infant Delivery Method: Physical Exam Urinary Catheter Management: Turk: Cath Placed During This Visit: yes, but has since been removed by the nurse Reason for Continuing Indwelling Catheter: Decision to DC Catheter Urinary Catheter Date of Insertion: 01/25/23 Urinary Catheter Time of Insertion: 00:20 Date Urinary Catheter Removed: 01/25/23 Time Urinary Catheter Discontinued: 10:00 History History History 2 Term 1 0 Miscarriages/Ectopic 0 Living Children 1 Discharge Data Studies Completed and Pending Laboratory Results WBC 12.27 10^3/uL (3.29-11.43) H 01/25/23 13:42 Corrected WBC Cancelled 01/25/23 12:29 RBC 3.34 10^6/uL (3.85-5.65) L 01/25/23 13:42 Hgb 10.20 g/dL (11.27-16.99) L 01/25/23 13:42 Hct 30.6 % (36-47) L 01/25/23 13:42 MCV 91.6 fl (85-98) 01/25/23 13:42 MCH 30.5 pg (27-33) 01/25/23 13:42 MCHC 33.3 g/dL (30-55) 01/25/23 13:42 RDW 13.9 % (12.1-15.1) 01/25/23 13:42 Plt Count 163 10^3/cmm (157-399) 01/25/23 13:42 MPV 10.4 fL (7.4-10.4) 01/25/23 13:42 Neut % (Auto) 68.6 % 01/24/23 23:12 Lymph % (Auto) 23.1 % 01/24/23 23:12 [place] % (Auto) 6.5 % 01/24/23 23:12 Eos % (Auto) 1.1 % 01/24/23 23:12 Baso % (Auto) 0.3 % 01/24/23 23:12 Neut # (Auto) 8.71 10^3/uL (1.8-7.7) H 01/24/23 23:12 Lymph # (Auto) 2.9 10^3/uL (0.8-4.8) 01/24/23 23:12 [place] # (Auto) 0.8 10^3/uL (0.2-0.9) 01/24/23 23:12 Eos # (Auto) 0.1 10^3/uL (0.0-0.8) 01/24/23 23:12 Baso # (Auto) 0.0 10^3/uL (0.0-0.1) 01/24/23 23:12 Nucleated RBC % (auto) 0 % 01/24/23 23:12 Nucleated RBCs # 0.0 /100WBC 01/24/23 23:12 Blood Type O Positive 01/24/23 23:12 Rho(D) Type Positive 01/24/23 23:12 Antibody Screen Negative 01/24/23 23:12 Procedures Performed Repeat low-transverse section Vitals Last Vital Signs Temp 98.2 F 01/27/23 05:02 Pulse 65 01/27/23 05:02 Resp 16 01/27/23 05:02 BP 94/57 01/27/23 05:02 Pulse Ox 96 01/27/23 05:02 O2 Del Method Room Air 01/27/23 05:02 Discharge Plan Discharge Patient Disposition: Home Condition: Stable Prescriptions: Continued sertraline [Zoloft] 25 mg tablet 25 mg PO DAILY Qty: 30 1RF prenat.vits,maranda,mcc-[id number] Tablet 1 tab PO DAILY Qty: 90 3RF No Action (DME) compr.stocking,thigh,reg,large Misc See Rx Instructions .Route Qty: 2 0RF Rx Instructions: As directed Discharge Orders: Discharge Order (Routine); Ordered 01/27/23 Ordered By: Lety Kay Discharge Diet: Regular Discharge Activity: Increase activity as tolerated Patient Instructions: Opioid Safety Activity Restrictions/Additional Instructions: Reviewed with patient postop expectations. To include no heavy lifting, pushing or pulling. No sex douching or tampons x6 weeks. Patient is to shower daily keeping incision clean and dry. Patient is to continue a high-fiber diet with increased fluids. For pain patient is to alternate ibuprofen and Tylenol as needed and to be taken with food. Plan of Treatment: DC patient to home follow-up in 2 weeks [address] attending OB. Dr. Mcdonald Discharge Attestations [employer] Time Spent in Discharge Care*: less than 30 min Coding Level of Care Code Acute Code for Chg Fwd Diagnoses Delivery by section at 37-39 weeks of gestation due to labor O75.82 Previous delivery affecting O34.219 History of depression Z87.59; Z86.59
[2023-01-27] MEDS: docusate sodium 100 mg Capsule PO (09:52)
[2023-01-27] MEDS: ibuprofen 800 mg tablet PO (09:53)
[2023-01-27 09:56] VITALS: BP 102/64; PULSE 69; RESP 15; TEMP 36.8
[2023-01-27 10:00] VITALS: BP 102/64; PULSE 69; RESP 15; TEMP 36.8
== END 2023-01-27 10:15 | disposition home or self-care (01) | DRG 788 ==
LOC: OPOB 01-25 12:41 → OBGYN 01-25 12:41
PROVIDERS: Admitting Provider Obstetrics & Gynecology; Family Provider Family Medicine; PCP Family Medicine; Visit Provider Obstetrics & Gynecology
PROC: (CPT 59514; principal; 2023-01-25 23:59)
DX: O34.211 Maternal care for low transverse scar from previous cesarean delivery (principal); N85.8 Other specified noninflammatory disorders of uterus; Z3A.38 38 weeks gestation of pregnancy; Z37.0 Single live birth
CPT/HCPCS: 36415; 51702; 59025; 59409; 81000; 85025; 85027; 86850; 86900; 96374; 96376; 99211; J0690; J1885; J2274; J2405; J2765; J3010; J3490; J7120; J7121

== ENCOUNTER → 2023-02-07 10:30 | Outpatient (BNVA) | payer BC, MEDICAID, SELFPAY | PROVIDERS: Family Provider Family Medicine; PCP Family Medicine; Visit Provider Nurse Practitioner Women's Health | DX: Z39.2 Encounter for routine postpartum follow-up (principal); R30.0 Dysuria; Z48.816 Encounter for surgical aftercare following surgery on the genitourinary system | CPT/HCPCS: 81000; 87086 ==

== ENCOUNTER → 2023-07-02 08:26 | Outpatient (BNVA) | payer BC, MEDICAID, SELFPAY | PROVIDERS: Family Provider Family Medicine; PCP Family Medicine; Visit Provider Nurse Practitioner Women's Health | DX: Z30.017 Encounter for initial prescription of implantable subdermal contraceptive (principal) | CPT/HCPCS: 81025 ==